=== PATIENT | male | born 1990 | race Caucasian/White ===

== ENCOUNTER 2021-08-18 16:43 | Emergency (ER) | payer BC ==
[~2021-08-18] VITALS: Ht 193 cm; Wt 131.1 kg
[2021-08-18 16:48] VITALS: BP 182/121
[2021-08-18] MEDS ORDERED: ketorolac trometh inj. 60 MG/2 ML VIAL IM ONE (17:00)
[2021-08-18] MEDS ORDERED: predniSONE 20 mg tablet PO ONE (17:00)
[2021-08-18] MEDS ORDERED: HYDR-3965 PO (17:04)
[2021-08-18] MEDS ORDERED: METH4TAB3 PO (17:04)
[2021-08-18] MEDS ORDERED: INDO-12 PO (17:04)
== END 2021-08-18 17:45 | disposition home or self-care (01) ==
LOC: ER 16:43
DX: M25.571 Pain in right ankle and joints of right foot (principal); M25.471 Effusion, right ankle; I10 Essential (primary) hypertension
CPT/HCPCS: 96372; 99283; J1885; J7512

== ENCOUNTER 2023-05-14 10:23 | Emergency (ER) | payer BC ==
[~2023-05-14] VITALS: Ht 193 cm; Wt 127.3 kg
[~2023-05-14 10:23] MED LIST: INDO-12 PO; METH4TAB3 PO
[2023-05-14 10:29] VITALS: BP 165/94; PULSE 125; RESP 18; TEMP 98.6; O2SAT 94
[2023-05-14] MEDS ORDERED: dexamethasone sod phosphate 10mg/ml inj IM STA (10:36)
[2023-05-14] MEDS ORDERED: indomethacin 25mg capsule PO ONE (10:40)
[2023-05-14] MEDS ORDERED: INDO50CA96 PO (10:41)
== END 2023-05-14 10:51 | disposition home or self-care (01) ==
LOC: ER 10:24
DX: M10.9 Gout, unspecified (principal); I10 Essential (primary) hypertension; Z79.899 Other long term (current) drug therapy
CPT/HCPCS: 96372; 99284; J1100